=== PATIENT | female | born 1975 | race Caucasian/White ===

== ENCOUNTER 2018-03-15 19:21 | Emergency (ER) | payer BC ==
[2018-03-15] MEDS ORDERED: Acetaminophen/HYDROcodone 325-5 MG Tab PO ONE (20:03)
--- NOTE | 2018-03-15 20:03 | EDM.PDOC ---
ED HPI GENERAL MEDICAL PROBLEM - General Chief Complaint: Lower Extremity Injury/Pain Stated Complaint: PINKY TOE ON LF IS HURT Time Seen by Provider: 03/15/18 19:35 Source of Information: Reports: Patient History Limitations: Reports: No Limitations - History of Present Illness INITIAL COMMENTS - FREE TEXT/NARRATIVE: HISTORY AND PHYSICAL: History of present illness: Patient is a 42-year-old female who presents to the emergency room today with complaints of left fifth digit toe pain. Patient reports that she was vacuuming and had hit the toe on the door and it became dislocated. She said she had moved away and the "toe went back in place". She does have some soft tissue swelling and bruising noted. She is currently able to move all toes on the affected foot. Denies any numbness or tingling to the affected extremity. Review of systems: As per history of present illness and below otherwise all systems reviewed and negative. Past medical history: As per history of present illness and as reviewed below otherwise noncontributory. Surgical history: As per history of present illness and as reviewed below otherwise noncontributory. Social history: No reported history of drug or alcohol abuse. Family history: As per history of present illness and as reviewed below otherwise noncontributory. Physical exam: General: Well-developed and well-nourished 42-year-old female. Alert and oriented. Nontoxic appearing and in no acute distress. HEENT: Atraumatic, normocephalic, pupils equal and reactive bilaterally, negative for conjunctival pallor or scleral icterus, mucous membranes moist, throat clear, neck supple, nontender, trachea midline. No drooling or trismus noted. No meningeal signs Lungs: Clear to auscultation, breath sounds equal bilaterally, chest nontender. Heart: S1S2, regular rate and rhythm without overt murmur Abdomen: Soft, nondistended, nontender. Negative for masses or hepatosplenomegaly. Negative for costovertebral tenderness. Pelvis: Stable nontender. Genitourinary: Deferred. Rectal: Deferred. Skin: Mild bruising and soft tissue swelling to the lateral left 5th digit. Otherwise intact, warm, dry. No lesions or rashes noted. Extremities: Moves all extremities per self without difficulty or deficits, pain with palpation of the left fifth toe, negative for cords or calf pain. Neurovascular unremarkable. Neuro: Awake, alert, oriented. Cranial nerves II through XII unremarkable. Cerebellum unremarkable. Motor and sensory unremarkable throughout. Exam nonfocal. Notes: Xray shows Treat patient with a postop shoe and crutches for comfort. Diagnostics: Toe xray, Left Therapeutics: [place] PO Prescription: None Impression: Toe Injury, left 5th digit Plan: 1. Rest, ice and elevate the extremity. Use the post-op shoe and crutches for comfort. 2. Tylenol and/or ibuprofen as needed for pain management. 3. Follow-up with your primary care provider or the blood coordinator in the next couple days. Return to the ED as needed and as discussed. Definitive disposition and diagnosis as appropriate pending reevaluation and review of above. Left 5-Little toe Pain Score (Numeric/FACES): 6 - Related Data Allergies Allergy/AdvReac Type Severity Reaction Status Date / Time adhesive tape Allergy Blisters Verified 03/15/18 19:58 Home Meds: Home Meds buPROPion [Wellbutrin] 1 tab DAILY 03/15/18 [History] Review of Systems - Review of Systems Review Of Systems: ROS reveals no pertinent complaints other than HPI. ED EXAM, GENERAL - Physical Exam Exam: See Below (See dictation) Course - Vital Signs Last Recorded V/S: Last Vital Signs Temp 97.8 F 03/15/18 19:56 Pulse 86 03/15/18 19:56 Resp 18 03/15/18 19:56 BP 141/78 H 03/15/18 19:56 Pulse Ox 96 03/15/18 19:56 - Orders/Labs/Meds Orders: Active Orders 24 hr Category Date Time Status Toes Fifth Digit Lt T4 [CR] Stat Exams 03/15/18 19:58 Taken DME for Discharge [COMM] Stat Oth 03/15/18 20:38 Ordered Meds: Medications Discontinued Medications Generic Name Dose Route Start Last Admin Trade Name Freq PRN Reason Stop Dose Admin Hydrocodone Bitart/Acetaminophen 1 tab 03/15/18 20:03 03/15/18 20:14 [place] 325-5 Mg PO 03/15/18 20:04 1 tab ONETIME ONE Administration Departure - Departure Time of Disposition: 20:57 Disposition: Home, Self-Care 01 Clinical Impression: Toe injury Qualifiers: Encounter type: initial encounter Laterality: left Qualified Code(s): S99.922A - Unspecified injury of left foot, initial encounter - Discharge Information Instructions: Toe Dislocation Referrals: PCP,None [Primary Care Provider] - Forms: ED Department Discharge Additional Instructions: The following information is given to patients seen in the emergency department who are being discharged to home. This information is to outline your options for follow-up care. We provide all patients seen in our emergency department with a follow-up referral. The need for follow-up, as well as the timing and circumstances, are variable depending upon the specifics of your emergency department visit. If you don't have a primary care physician on staff, we will provide you with a referral. We always advise you to contact your personal physician following an emergency department visit to inform them of the circumstance of the visit and for follow-up with them and/or the need for any referrals to a consulting specialist. The emergency department will also refer you to a specialist when appropriate. This referral assures that you have the opportunity for follow-up care with a specialist. All of these measure are taken in an effort to provide you with optimal care, which includes your follow-up. Under all circumstances we always encourage you to contact your private physician who remains a resource for coordinating your care. When calling for follow-up care, please make the office aware that this follow-up is from your recent emergency room visit. If for any reason you are refused follow-up, please contact the [facility] at and asked to speak to the emergency department charge nurse. [facility] [address] [place] [id number] [id number] 1. Rest, ice and elevate the extremity. Use the post-op shoe and crutches for comfort. 2. Tylenol and/or ibuprofen as needed for pain management. 3. Follow-up with your primary care provider or the blood coordinator in the next couple days. Return to the ED as needed and as discussed. - My Orders Last 24 Hours: My Active Orders 03/15/18 19:58 Toes Fifth Digit Lt T4 [CR] Stat 03/15/18 20:38 DME for Discharge [COMM] Stat - Assessment/Plan Last 24 Hours: My Active Orders 03/15/18 19:58 Toes Fifth Digit Lt T4 [CR] Stat 03/15/18 20:38 DME for Discharge [COMM] Stat
--- NOTE | 2018-03-18 15:15 | CR ---
EXAM DATE: 03/15/18 PATIENT'S AGE: 42 Patient: MARIA ISABEL LYONS Facility: [place], [place] Site . Site : [id number] Study: XRay Extremity Left Toe [id number]/[id number] 8:42:52 PM Ordering Physician: Doctor Rey Final Report: INDICATION: Stubbed pinky toe on door FINDINGS: Three views of the left toes focusing on the 5th digit show a 1-2 mm bony fragment off the lateral aspect of the distal portion of the left 5th proximal phalanx which could represent a small avulsion fracture. No other evidence of acute fracture or dislocation. No other bony or soft tissue abnormalities identified. Dictated by Ramesh Pizano MD @ 03/15/2018 8:58:59 PM Dictated by: Ramesh Pizano MD @ 03/15/2018 20:59:20 (Electronic Signature) Report Signed by Proxy. DARREL
== END 2018-03-15 21:07 | disposition home or self-care (01) ==
LOC: MW.ED 19:21
DX: S99.922A Unspecified injury of left foot, initial encounter (principal); Z91.09 Other allergy status, other than to drugs and biological substances; Z79.899 Other long term (current) drug therapy; W22.8XXA Striking against or struck by other objects, initial encounter
CPT/HCPCS: 73660; 99283; A9270

== ENCOUNTER 2024-03-28 15:37 | Emergency (ER) | payer BC, OTHER ==
[2024-03-28] MEDS: Lidocaine/Epineph/Tetracaine 3 ML Syringe TOP ONE (15:57)
== END 2024-03-28 15:52 | disposition left against medical advice (07) ==
LOC: MW.ED 15:37
DX: Z53.21 Procedure and treatment not carried out due to patient leaving prior to being seen by health care provider (principal)